=== PATIENT | female | born 1965 | race Two or more races ===

== ENCOUNTER 2016-08-06 10:18 | Day surgery (SDC) | payer OTHER ==
[2016-08-03 11:27] VITALS: BMI 25.6
[~2016-08-06 10:18] MED LIST: LEVOFLOXACIN 500 MG PREMIX BAG IVPB ONE
[2016-08-06] MEDS ORDERED: PROPOFOL 20 ML ONE (13:44)
[2016-08-06] MEDS ORDERED: MIDAZOLAM HCL 2 MG/2 ML SINGLE DOSE VIAL ONE ×2 (13:44→14:04)
[2016-08-06] MEDS ORDERED: LEVOFLOXACIN 500 MG PREMIX BAG IVPB ONE (13:49)
[2016-08-06] MEDS ORDERED: LEVOFLOXACIN 500 MG IVPB 100 ML IVPB ONE (13:50)
[2016-08-06] MEDS ORDERED: ONDANSETRON 4 MG/2 ML VIAL ONE (14:27)
[2016-08-06] MEDS ORDERED: ONDANSETRON 4 MG/2 ML VIAL IVPUSH PRN (15:23)
[2016-08-06] MEDS ORDERED: oxyCODONE HCL 5 MG TABLET PO PRN (15:23)
[2016-08-06] MEDS ORDERED: LACTATED RINGERS SOLUTION 1,000 ML IV SCH (15:30)
--- NOTE | 2016-08-06 16:09 | OP ---
Operative Note - Note: Operative Date: 08/06/16 Pre-Operative Diagnosis: right 4mm lower pole stone Operation: right eswl Post-Operative Diagnosis: Same as Pre-op Surgeon: Rich Isaac Anesthesia: General Operative Report Dictated: Yes
[2016-08-06 17:18] VITALS: BP 128/78; PULSE 58; TEMP 98
--- NOTE | 2016-08-07 13:53 | OP ---
DATE OF OPERATION: 08/06/2016 PREOPERATIVE DIAGNOSIS: Right renal stone. POSTOPERATIVE DIAGNOSIS: Right renal stone. PROCEDURE: Right extracorporeal shock wave lithotripsy. ATTENDING PHYSICIAN: Conrad Sánchez MD ANESTHESIA: General. DESCRIPTION OF PROCEDURE: The operation went as follows: The patient was brought in the operating room, placed in supine position on the operating room table. Fluoroscopy and ultrasonography were performed. A 4-mm right mid-pole stone was identified. General anesthesia and preoperative antibiotics consisting of Levaquin were administered. The patient then had lithotripsy performed; 2500 impulses at 18 joules of power were administered to the stone with excellent fragmentation on real-time ultrasonography and fluoroscopy. No complications were noted. The patient tolerated the procedure very well. CONRAD SÁNCHEZ M.D. /[id number]
== END 2016-08-06 17:18 | disposition home or self-care (01) ==
LOC: JASU-SURG 10:18
PROVIDERS: ATTEND Urology
PROC: 0TF3XZZ Fragmentation in Right Kidney Pelvis, External Approach (ICD-10-PCS; principal; 2016-08-06 11:45)
DX: N20.0 Calculus of kidney (principal)
CPT/HCPCS: 84703; 94760

== ENCOUNTER → 2016-09-27 | Day surgery (SDC) | payer OTHER ==
--- NOTE | 2016-09-28 15:54 | PATH ---
Cytology Non-Gynecological Report Patient Name: ADELIA SHELTON [facility]. Rec. #: [id number] /Age/Gender: 1965 (Age: 51) / F Account: [id number] Location: RADIOLOGY Taken: 09/27/2016 Received: 09/27/2016 Reported: 09/28/2016 Physicians: Urbano Corral M.D. Specimen(s) Received LEFT THYROID FNA Clinical History Left thyroid lobe nodule, 3.92 x 3.19 x 3.42 cm Final Diagnosis THYROID GLAND, LEFT LOBE, US GUIDED FINE NEEDLE ASPIRATION BIOPSY: NO FOLLICULAR EPITHELIAL CELLS PRESENT. CYST CONTENTS WITH DEGENERATED MACROPHAGES AND SCANT COLLOID (SEE COMMENT). Comment: The smears and the cell block show cyst contents with degenerated macrophages and scant colloid. No follicular epithelial cells are present. These findings are considered non-diagnostic (Cove Category I) according to the Cove guidelines. Imaging correlations and followup are suggested. Electronically Signed Familia Torres M.D. Gross Description Received are four air dried smears, four smears in 95% alcohol, and 20 cc of bloody fluid in formalin. Four diff-quik stained slides, four Pap stained slides and one cell block are made.
== END | disposition home or self-care (01) ==
LOC: JRADIR 08:24
PROVIDERS: ATTEND Internal Medicine Endocrinology, Diabetes & Metabolism
PROC: 0G9G3ZX Drainage of Left Thyroid Gland Lobe, Percutaneous Approach, Diagnostic (ICD-10-PCS; principal; 2016-09-27)
PROC: BG44ZZZ Ultrasonography of Thyroid Gland (ICD-10-PCS; 2016-09-27)
DX: E04.1 Nontoxic single thyroid nodule (principal)
CPT/HCPCS: 76942

== ENCOUNTER 2016-11-23 04:58 | Day surgery (SDC) | payer OTHER ==
[2016-11-19 10:40] VITALS: BMI 25.6
[2016-11-23] MEDS ORDERED: LIDOCAINE 1%/EPI 1:100000 (50 ML MULTI DOSE VIAL) ONE (10:22)
[2016-11-23] MEDS ORDERED: MICROFIBRILLAR COLLAGEN 1 GM EACH ONE (10:22)
[2016-11-23] MEDS ORDERED: DESFLURANE GAS 240 ML BOTTLE IH ONE (10:22)
[2016-11-23] MEDS ORDERED: PROPOFOL 20 ML ONE (10:35)
[2016-11-23] MEDS ORDERED: MIDAZOLAM HCL 2 MG/2 ML SINGLE DOSE VIAL ONE (10:35)
[2016-11-23] MEDS ORDERED: ceFAZolin SODIUM 1 GM VIAL ONE (11:07)
[2016-11-23] MEDS ORDERED: ceFAZolin SODIUM 1 GM VIAL IVPB ONE (11:07)
[2016-11-23] MEDS ORDERED: LIDOCAINE 1%/EPI 1:100000 (20 ML MULTI DOSE VIAL) IJ ONE (11:19)
[2016-11-23] MEDS ORDERED: LIDOCAINE HCL/PF 2% SDV 5ML VIAL ONE (11:25)
[2016-11-23] MEDS ORDERED: MICROFIBRILLAR COLLAGEN 1 GM EACH TP ONE (11:32)
[2016-11-23] MEDS ORDERED: ACETAMINOPHEN 500 MG TABLET (FP) PO PRN (11:45)
[2016-11-23] MEDS ORDERED: ONDANSETRON 4 MG/2 ML VIAL IVPUSH PRN (11:45)
[2016-11-23] MEDS ORDERED: IBUPROFEN 800 MG/8 ML IJ IVPB PRN (11:45)
[2016-11-23] MEDS ORDERED: oxyCODONE HCL 5 MG TABLET PO PRN (11:45)
[2016-11-23] MEDS ORDERED: LACTATED RINGERS SOLUTION 1,000 ML IV SCH ×2 (11:45→12:15)
--- NOTE | 2016-11-23 12:57 | OP ---
DATE OF OPERATION: 11/23/2016 SURGICAL ATTENDING: Rosemary Zarco MD [employer] DEVELOPER: Julian. PREOPERATIVE DIAGNOSIS: Left thyroid mass. POSTOPERATIVE DIAGNOSIS: Left thyroid mass. ANESTHESIA: General endotracheal. PROCEDURE: 1. Left hemithyroidectomy. 2. Neck ultrasound. DESCRIPTION OF PROCEDURE: The patient was taken into the operating room, placed in a supine position, endotracheally intubated. Neck ultrasound was performed showing a left cystic mass of the thyroid gland. No other thyroid or neck masses were seen. The patient was then prepped and draped in the usual sterile fashion. Local anesthesia was administered, and a 4.5-cm incision was made in a left upper-neck skin crease and carried down through subcutaneous tissues and platysma. Subplatysmal flaps were raised superiorly and inferiorly, and flap hooks were placed for exposure. The left-sided strap muscles were elevated. However, the left sternothyroid muscle appears somewhat adherent to the cyst, and therefore was left attached to the cyst with its upper and lower attachments transected. The sternohyoid muscle was retracted laterally. The recurrent laryngeal nerve was identified, dissected, and preserved. Every attempt was made to preserve parathyroid tissue, as well. The superior pole was transected with care taken to preserve the superior laryngeal nerve. The posterior and inferior attachments were transected, and the isthmus was transected, and in this way, the left thyroid lobe was removed with the cyst intact. The specimen was then inspected for parathyroid tissue, and none were found. It was then passed off the field for evaluation by Pathology. Hemostasis was achieved with electrocautery, Avitene, and sutures. The wound was then closed in three layers. Sterile dressings were placed. The patient was then awakened, extubated, and taken to recovery in stable condition. Dr. Zarco, the attending surgeon, was present throughout the entire procedure. ROSEMARY ZARCO M.D. [id number]
[2016-11-23] MEDS ORDERED: ONDANSETRON 4 MG/2 ML VIAL IVPUSH ONE ×2 (14:10→17:39)
[2016-11-23] MEDS ORDERED: ONDANSETRON 4 MG/2 ML VIAL ONE ×2 (14:12→17:39)
--- NOTE | 2016-11-23 17:30 | SURG ---
Surgery Glass Breaker Note Glass Breaker: Julian Maldonado PA-C Date of Service: 11/23/16 Diagnosis: Left thryoid mass Procedure: Lemi hemithyroidectomy I was present for the entirety of the operative procedure. For further detail, please refer to operative report. Visit type - Case Type Case Type: Scheduled Admission - New patient This patient is new to me today: Yes Date on this admission: 11/23/16
[2016-11-23] MEDS ORDERED: PROMETHAZINE HCL 25 MG/1 ML VIAL IVPUSH PRN (17:39)
[2016-11-23 18:29] VITALS: TEMP 97.8
[2016-11-23 20:53] VITALS: BP 113/72; PULSE 70
--- NOTE | 2016-11-26 14:16 | PATH ---
Surgical Pathology Report Patient Name: ADELIA SHELTON [facility]. Rec. #: [id number] /Age/Gender: 1965 (Age: 51) / F Account: [id number] Location: [facility] SURGICAL Taken: 11/23/2016 Received: 11/23/2016 Reported: 11/26/2016 Physicians: Can Mclaughlin M.D. Specimen(s) Received LEFT THYROID LOBE Clinical History Left thyroid mass Final Diagnosis THYROID, LEFT LOBE, HEMITHYROIDECTOMY: BENIGN THYROID WITH CYSTIC NODULE CONSISTENT WITH BENIGN ADENOMATOUS NODULE (GOITER) WITH CYSTIC DEGENERATIVE CHANGES. REMAINING THYROID TISSUE WITH FOCAL NODULARITY SUGGESTIVE OF EVOLVING MULTINODULAR GOITER. NO CARCINOMA IDENTIFIED. Comment: See also prior cytology case [id number]. Electronically Signed Donaldo Bush M.D. Gross Description Received in formalin labeled "left thyroid lobe," is a 25 g, 4.7 x 3.8 x 2.8 cm unoriented thyroid lobe. The outer capsule is marroquin-pink with fibrous adhesions. Sectioning reveals a 3.5 cm in greatest dimension cyst containing marroquin serous fluid. The minimal remaining thyroid parenchyma is red-brown and beefy. Biomedical Manager sections are submitted in 7 cassettes. DL/11/23/2016 saudi/11/23/2016
== END 2016-11-23 20:15 | disposition home or self-care (01) ==
LOC: JASU-SURG 04:58
PROVIDERS: ATTEND Surgery
PROC: 0GTK0ZZ Resection of Thyroid Gland, Open Approach (ICD-10-PCS; principal; 2016-11-23 10:15)
DX: E04.1 Nontoxic single thyroid nodule (principal)
CPT/HCPCS: 84703; 88307-TC; 94760

== ENCOUNTER 2016-11-25 16:00 | Observation (INO) | payer OTHER ==
--- NOTE | 2016-11-25 16:17 | PDOC ---
History of Present Illness - General Chief Complaint: Syncope/Near Syncope Stated Complaint: LOW BP/SYNCOPE Time Seen by Provider: 11/25/16 16:17 - History of Present Illness Initial Comments: 51 year old female with PMH of vertigo and frequent UTIs 2 days post of from parathyroidectomy (for dermal cyst) presenting after a syncopal episode. Patient had a post op recovery period significant for heavy vomiting, bilateral rib pain, and decreased appetite. One hour before presentation to the ED she was urinating and began to feel light headed. She stood up from the toilet and the sensation worsened. She Made it to her bedroom at which point she doesn't recall anything until she was being helped up by her sister. She states the sensation was unlike her vertigo. Her sister who helped her off of the floor states that she was covered in sweat but there was no witnessed seizure activity , no bowel/bladder incontinence, and no open wounds or obvious bony deformity. Her bilateral lower rib pain is worse with movement but has no relation to deep breathing. The patient denies recent fevers, chills, diarrhea, chest pain, palpitations, or cough. 11/25/16 16:42 Past History - Past Medical History Allergies/Adverse Reactions: Allergies Allergy/AdvReac Type Severity Reaction Status Date / Time No Known Allergies Allergy Verified 11/25/16 16:06 Home Medications: Ambulatory Orders Meclizine HCl 25 mg PO PRN PRN 08/03/16 Omeprazole 40 mg PO PRN PRN 08/06/16 Cyanocobalamin [Vitamin B12 -] 1,000 mcg PO DAILY 11/23/16 Anemia: No Asthma: No Cancer: No Cardiac Disorders: No CVA: No COPD: No CHF: No Dementia: No Diabetes: No GI Disorders: No Disorders: No HTN: No Hypercholesterolemia: No Liver Disease: No Seizures: No Thyroid Disease: Yes Other medical history: thyroid sx 2017 - Suicide/Smoking/Psychosocial Hx Smoking History: Never smoked Hx Alcohol Use: No Drug/Substance Use Hx: No Substance Use Type: None Review of Systems - Review of Systems Constitutional: Yes: Diaphoresis. No: Chills, Fever HEENTM: No: Blurred Vision, Recent change in vision Respiratory: No: Shortness of Breath, SOB with Exertion, Wheezing, Productive cough Cardiac (ROS): Yes: Lightheadedness, Syncope. No: Chest Pain, Irregular Heart Rate, Palpitations, Chest Tightness ABD/GI: Yes: Poor Appetite, Vomiting. No: Diarrhea, Nausea : No: Dysuria, Discharge, Frequency, Flank Pain Integumentary: No: Bruising, Lesions Neurological: Yes: Weakness. No: Headache, Numbness, Seizure, Tingling Psychiatric: No: Anxiety *Physical Exam - Vital Signs Last Vital Signs Temp Pulse Resp BP Pulse Ox 98.2 F 83 18 121/77 98 11/25/16 16:04 11/25/16 16:04 11/25/16 16:04 11/25/16 16:04 11/25/16 16:04 - Physical Exam General Appearance: Yes: Nourished, Appropriately Dressed. No: Apparent Distress HEENT: positive: EOMI, JEN, Normal ENT Inspection (Scar across neck logan, dry, and intact. No obvious sign of erythema, fluctuance, or drainage.), Normal Voice Neck: positive: Tender, Trachea midline, Supple. negative: Normal Thyroid, Rigid Respiratory/Chest: positive: Normal Breath Sounds. negative: Chest Tender, Lungs Clear, Respiratory Distress Cardiovascular: positive: Regular Rhythm, Regular Rate Gastrointestinal/Abdominal: positive: Normal Bowel Sounds, Flat, Soft. negative : Tender Musculoskeletal: positive: Normal Inspection. negative: CVA Tenderness Integumentary: positive: Normal Color, Dry, Warm Neurologic: positive: can crimper II-XII NML intact, Fully Oriented, Alert, Normal Mood/ Affect, Normal Response, Motor Strength 5/5 ED Treatment Course - LABORATORY CBC & Chemistry Diagram: 11/25/16 16:45 11/25/16 16:45 Medical Decision Making - Medical Decision Making 51 year old female 2 days post op presenting after brief syncopal episode. This is most concerning for orthostatic hypotentision/ vasovagal syncope in the setting of decreased volume status. However, more serious pathologies such as acute cardiac event, serious electrolyte derangement, and underlying infection should be ruled out. Will get CBC, CMP, cxr, UA/UC, and will hold off on troponins or d-dimer unless abnormality in EKG or patient exhibiting concerning vitals unexplainable by other identifiable causes. 11/25/16 17:28 Labs patel-normal with the exception of a slightly elevated ckmb and cpk and some Ketones in her urine all pointing to some level of dehydration. She feels slightly better after 1 L of NS and 800 ibuprofen. She still feels weak. Discussed the case with Dr. Perales and she agrees that a tele-obs could be beneficial however she would like the hospitalist team to take this admission. Discussed the case with the hospitalist team and they agree to a tele obs. 11/25/16 21:51 11/25/16 22:[address] Perales, she would like to see the patient after she is discharged. 11/25/16 22:01 *DC/Admit/Observation/Transfer Diagnosis at time of Disposition: Syncope - Discharge Dispostion Condition at time of disposition: Stable Admit: Yes - Referrals Referrals: Scarlet Perales MD [Primary Care Provider] -
--- NOTE | 2016-11-25 16:39 | PDOC ---
Attending Attestation - Resident Resident Name: Theresa Ward - ED Attending Attestation I have performed the following: I have examined & evaluated the patient, The case was reviewed & discussed with the resident, I agree w/resident's findings & plan, Exceptions are as noted - HPI HPI: 11/25/16 16:37 SYncope earlier today - Physicial Exam PE: 11/25/16 16:38 VSS/Awake/Alert/Aware - Medical Decision Making 11/25/16 16:[address] Theresa Ward's assessment and plan
[2016-11-25] MEDS ORDERED: SODIUM CHLORIDE 0.9% 1000 ML INFUS.BAG IV ONE (16:46)
[2016-11-25 16:52] LABS: BASOPHIL 0.6 % (0-2.0); EOSINOPHIL 0.8 % (0-4.5); MCH 29.5 pg (25.7-33.7); MCHC 33.1 g/dl (32.0-36.0); MEAN CELL VOLUME 89.1 fl (80-96); MEAN PLT VOLUME 7.8 fl (7.5-11.1); NEUTROPHILS 79.1 % (42.8-82.8); PLATELET COUNT 281 K/MM3 (134-434); RDW 14.2 % (11.6-15.6); WHITE BLOOD COUNT 8.5 K/mm3 (4.0-10.0)
[2016-11-25 17:03] LABS: URINE APPEARANCE SLCLOUDY; URINE BILIRUBIN NEGATIVE (NEGATIVE); URINE BLOOD NEGATIVE (NEGATIVE); URINE COLOR DKYELLOW; URINE GLUCOSE (UA) NEGATIVE (NEGATIVE); URINE KETONE TRACE (NEGATIVE); URINE LEUK ESTERASE NEGATIVE (NEGATIVE); URINE NITRITE NEGATIVE (NEGATIVE); URINE UROBILINOGEN NEGATIVE mg/dL (0.2-1.0)
[2016-11-25 17:15] LABS: URINE PROTEIN 2+ (NEGATIVE)
[2016-11-25 17:17] LABS: URINE BACTERIA RARE /hpf (NONE SEEN); URINE MUCUS FEW; URINE RBC 18 /hpf (0-3); URINE WBC 6 /hpf (3-5)
[2016-11-25 17:28] LABS: ALBUMIN 3.9 g/dl (3.4-5.0); ANION GAP 10 (8-16); BILIRUBIN,TOTAL 0.2 mg/dL (0.2-1.0); CALCIUM 8.7 mg/dL (8.5-10.1); CO2 30 mmol/L (21-32); CREATININE 0.9 mg/dL (0.55-1.02); GLUCOSE,RANDOM 102 mg/dL (74-106); MAGNESIUM 2.2 mg/dL (1.8-2.4); SGOT/AST 24 U/L (15-37); SGPT/ALT 32 U/L (12-78); TOT PROT 7.1 g/dl (6.4-8.2)
[2016-11-25 17:29] LABS: ALK PHOS 90 U/L (45-117)
[2016-11-25] MEDS ORDERED: IBUPROFEN 400 MG TABLET (FP) PO ONE ×2 (17:54→17:58)
[2016-11-25 20:20] LABS: CPK 314 IU/L (26-192); TROPONIN I < 0.02 ng/ml (0.00-0.05)
[2016-11-25] MEDS ORDERED: SODIUM CHLORIDE 0.9% 500 ML INFUS.BAG IV ONE (20:55)
--- NOTE | 2016-11-25 22:08 | HP ---
CHIEF COMPLAINT: Syncope PCP: Dr. Perales HISTORY OF PRESENT ILLNESS: 51 y.o. F with pmh of vertigo, frequent UTI's, nephrolithiasis, and parathyroidectomy pod#2 presenting after a syncopal episode. Patient states she was urinating today and felt light headed. She made it to her room before passing out. Her fall was unwitnessed. She was found by her sister who states she was diaphoretic upon awakening. Patient notes she has had significant vomiting, bilateral rip pain, and decreased appetite after her surgery. Patient denies fever, chills, diarrhea, chest pain, sob, cough, abd pain. Patient had a similar episode earlier in the day but did not lose consciousness. ER course was notable for: (1) cbc, bmp- wnl (2) UA- 2+ protein, trace ketone, creatine kinase-314, trop negative (3) EKG- NSR, LAD, QTC-449 Recent Travel: denies PAST MEDICAL HISTORY: as per hpi PAST SURGICAL HISTORY: parathyroidectomy Social History: Smoking: denies Alcohol: denies Drugs: denies Family History: unknown Allergies No Known Allergies Allergy (Verified 11/25/16 16:06) HOME MEDICATIONS: Home Medications Medication Instructions Recorded Meclizine HCl 25 mg PO PRN PRN 08/03/16 Omeprazole 40 mg PO PRN PRN 08/06/16 Cyanocobalamin [Vitamin B12 -] 1,000 mcg PO DAILY 11/23/16 REVIEW OF SYSTEMS CONSTITUTIONAL: Absent: fever, chills, diaphoresis, generalized weakness, malaise, loss of appetite, weight change HEENT: Absent: rhinorrhea, nasal congestion, throat pain, throat swelling, difficulty swallowing, mouth swelling, ear pain, eye pain, visual changes CARDIOVASCULAR: Absent: chest pain, syncope, palpitations, irregular heart rate, lightheadedness , peripheral edema RESPIRATORY: Absent: cough, shortness of breath, dyspnea with exertion, orthopnea, wheezing, stridor, hemoptysis GASTROINTESTINAL: Absent: abdominal pain, abdominal distension, nausea, vomiting, diarrhea, constipation, melena, hematochezia GENITOURINARY: Absent: dysuria, frequency, urgency, hesitancy, hematuria, flank pain, genital pain MUSCULOSKELETAL: Absent: myalgia, arthralgia, joint swelling, back pain, neck pain SKIN: Absent: rash, itching, pallor HEMATOLOGIC/IMMUNOLOGIC: Absent: easy bleeding, easy bruising, lymphadenopathy, frequent infections ENDOCRINE: Absent: unexplained weight gain, unexplained weight loss, heat intolerance, cold intolerance NEUROLOGIC: Absent: headache, focal weakness or paresthesias, dizziness, unsteady gait, seizure, mental status changes, bladder or bowel incontinence PSYCHIATRIC: Absent: anxiety, depression, suicidal or homicidal ideation, hallucinations. PHYSICAL EXAMINATION Vital Signs - 24 hr 11/25/16 11/25/16 16:04 17:24 Temperature 98.2 F Pulse Rate 83 Pulse Rate [ 83 Left side Sitting] Pulse Rate [ 87 Left side Standing] Pulse Rate [ 97 H Left side Supine] Respiratory 18 Rate Blood Pressure 121/77 Blood Pressure 113/85 [Left side Sitting] Blood Pressure 106/82 [Left side Standing] Blood Pressure 108/83 [Left side Supine] O2 Sat by Pulse 98 Oximetry (%) GENERAL: Awake, alert, and fully oriented, in no acute distress. HEAD: Normal with no signs of trauma. EYES: Pupils equal, round and reactive to light, extraocular movements intact, sclera anicteric, conjunctiva clear. No lid lag. EARS, NOSE, THROAT: Ears normal, nares patent, oropharynx clear without exudates. Dry mucous membranes. NECK: Normal range of motion, supple without lymphadenopathy, JVD, or masses. Midline scar, well healing, clean dry intact LUNGS: Breath sounds equal, clear to auscultation bilaterally. No wheezes, and no crackles. No accessory muscle use. HEART: Regular rate and rhythm, normal S1 and S2 without murmur, rub or gallop. ABDOMEN: Soft, nontender, not distended, normoactive bowel sounds, no guarding, no rebound, no masses. No hepatomegaly or splenomegaly. +Bilateral rib pain tenderness to palpation MUSCULOSKELETAL: Normal range of motion at all joints. No bony deformities or tenderness. No CVA tenderness. UPPER EXTREMITIES: 2+ pulses, warm, well-perfused. No cyanosis. No clubbing. No peripheral edema. LOWER EXTREMITIES: 2+ pulses, warm, well-perfused. No calf tenderness. No peripheral edema. NEUROLOGICAL: Cranial nerves II-XII intact. Normal speech. Normal gait. PSYCHIATRIC: Cooperative. Good eye contact. Appropriate mood and affect. SKIN: Warm, dry, normal turgor, no rashes or lesions noted, normal capillary refill. Laboratory Results - last 24 hr 11/25/16 11/25/16 11/25/16 16:44 16:45 16:45 WBC 8.5 D RBC 4.83 Hgb 14.2 Hct 43.0 MCV 89.1 MCH 29.5 MCHC 33.1 RDW 14.2 Plt Count 281 MPV 7.8 Neutrophils % 79.1 D Lymphocytes % 12.3 D Monocytes % 7.2 Eosinophils % 0.8 Basophils % 0.6 Sodium 141 Potassium 3.9 Chloride 101 Carbon Dioxide 30 Anion Gap 10 BUN 12 Creatinine 0.9 D Creat Clearance w eGFR > 60 Random Glucose 102 Calcium 8.7 Magnesium 2.2 Total Bilirubin 0.2 D AST 24 D ALT 32 Alkaline Phosphatase 90 Creatine Kinase Creatine Kinase Index CK-MB (CK-2) Troponin I Total Protein 7.1 Albumin 3.9 Urine Color Urine Appearance Urine pH Urine Protein Urine Glucose (UA) Urine Ketones Urine Blood Urine Nitrite Urine Bilirubin Urine Urobilinogen Urine RBC Urine WBC Ur Epithelial Cells Urine Bacteria Urine Mucus Urine HCG, Qual Negative 11/25/16 11/25/16 16:51 20:00 WBC RBC Hgb Hct MCV MCH MCHC RDW Plt Count MPV Neutrophils % Lymphocytes % Monocytes % Eosinophils % Basophils % Sodium Potassium Chloride Carbon Dioxide Anion Gap BUN Creatinine Creat Clearance w eGFR Random Glucose Calcium Magnesium Total Bilirubin AST ALT Alkaline Phosphatase Creatine Kinase 314 H Creatine Kinase Index 0.4 CK-MB (CK-2) 1.444 Troponin I < 0.02 Total Protein Albumin Urine Color Dkyellow Urine Appearance Slcloudy Urine pH 7.0 D Urine Protein 2+ H Urine Glucose (UA) Negative Urine Ketones Trace H Urine Blood Negative Urine Nitrite Negative Urine Bilirubin Negative Urine Urobilinogen Negative Urine RBC 18 Urine WBC 6 Ur Epithelial Cells Rare Urine Bacteria Rare Urine Mucus Few Urine HCG, Qual ASSESSMENT/PLAN: 51 y.o. F with pmh of GERD, vertigo, frequent uti's, nephrolithiasis presents after an unwitnessed fall admitted to tele-obs for syncope #Syncope, vasovagal vs cardiogenic -Orthostatic vs done -IVF NS @ 100 cc/hr -Echocardiogram pending -Carotid U/s -CT head -Trend trops/EKG #Vertigo -Meclizine 25 mg po daily prn #GERD -Protonix 40 mg po daily prn #Rib pain, b/l -Rib series bilaterally #Parathyroidectomy, POD#2 -Monitor pain -Patient scheduled for f/u visit next week #FEN/GI -IVF NS @ 100cc/hr -wnl -Regular Diet #PPx -DVT- scd's -GI- protonix 40 mg po daily prn #Dispo -Tele-obs -D/c pending echo and carotid u/s Visit type - Emergency Visit Emergency Visit: Yes Care time: The patient presented to the Emergency Department on the above date and was hospitalized for further evaluation of their emergent condition. - New Patient This patient is new to me today: Yes Date on this admission: 11/25/16 - Critical Care Critical Care patient: No
--- NOTE | 2016-11-25 22:15 | PN ---
Teaching Attending Note Name of Resident: Carlos Garcia ATTENDING PHYSICIAN STATEMENT I saw and evaluated the patient. I reviewed the resident's note and discussed the case with the resident. I agree with the resident's findings and plan as documented. SUBJECTIVE: 51 F with Pmhx of Vertigo and frequent UTIs. She is S/p Parathyriodectomy for a dermal cyst. She presents after loss of consciousness at home. Stats her recovery was complicated by vomiting, and decreased appeitite. States that she was at home and stood up from the toilet and then being helped by her sister. States she DID NOT hit her head, but fall was UNWITNESSED. Also, notes rib pain. OBJECTIVE: Physical: VS: Vital Signs Period Temp Pulse Resp BP Sys/Judd Pulse Ox Last 24 Hr 98.2 F-98.7 F 67-97 16-18 106-123/76-85 96-98 GEN: NAd, resting in bed HEENT: NCAT, PERRL, Midline neck scar, without exudates or significant erythema CARD: RRR S1, S2 RESP: CTAB ABD: BSx4, NTD to palpation EXT: - C/C/E CBCD WBC 8.5 K/mm3 (4.0-10.0) D 11/25/16 16:45 RBC 4.83 M/mm3 (3.60-5.2) 11/25/16 16:45 Hgb 14.2 GM/dL (10.7-15.3) 11/25/16 16:45 Hct 43.0 % (32.4-45.2) 11/25/16 16:45 MCV 89.1 fl (80-96) 11/25/16 16:45 MCHC 33.1 g/dl (32.0-36.0) 11/25/16 16:45 RDW 14.2 % (11.6-15.6) 11/25/16 16:45 Plt Count 281 K/MM3 (134-434) 11/25/16 16:45 MPV 7.8 fl (7.5-11.1) 11/25/16 16:45 CMP Sodium 141 mmol/L (136-145) 11/25/16 16:45 Potassium 3.9 mmol/L (3.5-5.1) 11/25/16 16:45 Chloride 101 mmol/L (98-107) 11/25/16 16:45 Carbon Dioxide 30 mmol/L (21-32) 11/25/16 16:45 Anion Gap 10 (8-16) 11/25/16 16:45 BUN 12 mg/dL (7-18) 11/25/16 16:45 Creatinine 0.9 mg/dL (0.55-1.02) D 11/25/16 16:45 Creat Clearance w eGFR > 60 (>60) 11/25/16 16:45 Calcium 8.7 mg/dL (8.5-10.1) 11/25/16 16:45 Total Bilirubin 0.2 mg/dL (0.2-1.0) D 11/25/16 16:45 AST 24 U/L (15-37) D 11/25/16 16:45 ALT 32 U/L (12-78) 11/25/16 16:45 Alkaline Phosphatase 90 U/L (45-117) 11/25/16 16:45 Total Protein 7.1 g/dl (6.4-8.2) 11/25/16 16:45 Albumin 3.9 g/dl (3.4-5.0) 11/25/16 16:45 EKG: NSR, LAD, QTc 449 ASSESSMENT AND PLAN: 51 F with pmhx. of vertigo, utis, 2 days post op from parathyriodectomy who presents with loss of concioussness with unwitnessed fall. 1.) Loss of Conciousness - DDX: Vasovagal syncope/Cardiogenic - Orthostatic VS - IVF - Echo/Carotid us - CT HEAD- unwitnessed fall - Trend Trop/Ekg - Tele 2.) Vertigo - C/W Meclizine 3.) Parathyriodectomy POD 2 - Monitor 4.) Rib Pain - Rib Series 5.) Dvt Ppx - Low Risk - SCD Place in Obs- Tele
[2016-11-25] MEDS ORDERED: SODIUM CHLORIDE 1,000 ML IV SCH (23:00)
[2016-11-25] MEDS ORDERED: PATIENT'S OWN MEDICATION (NON-FORMULARY) (Omeprazole 40 MG) PO PRN (23:10)
[2016-11-25] MEDS ORDERED: MECLIZINE HCL 12.5 MG TABLET PO PRN ×2 (23:10→23:15)
[2016-11-25] MEDS ORDERED: MECLIZINE HCL 25 MG TABLET (FP) PO PRN (23:20)
[2016-11-25] MEDS ORDERED: PANTOPRAZOLE 40 MG TABLET (FP) ONE (23:53)
[2016-11-26] MEDS: PANTOPRAZOLE 40 MG TABLET (FP) PO SCH ×2 (00:14→10:57)
[2016-11-26 02:51] VITALS: BMI 25.7
[2016-11-26 07:09] LABS: BASOPHIL 0.9 % (0-2.0); EOSINOPHIL 2.8 % (0-4.5); MCH 29.1 pg (25.7-33.7); MCHC 32.5 g/dl (32.0-36.0); MEAN CELL VOLUME 89.4 fl (80-96); NEUTROPHILS 56.8 % (42.8-82.8); PLATELET COUNT 234 K/MM3 (134-434); RDW 14.3 % (11.6-15.6); WHITE BLOOD COUNT 6.5 K/mm3 (4.0-10.0)
[2016-11-26 08:07] LABS: ALBUMIN 3.3 g/dl (3.4-5.0); ALK PHOS 72 U/L (45-117); ANION GAP 10 (8-16); BILIRUBIN,TOTAL 0.3 mg/dL (0.2-1.0); CO2 25 mmol/L (21-32); CREATININE 0.6 mg/dL (0.55-1.02); GLUCOSE,RANDOM 90 mg/dL (74-106); SGOT/AST 20 U/L (15-37); SGPT/ALT 27 U/L (12-78); TOT PROT 6.2 g/dl (6.4-8.2)
--- NOTE | 2016-11-26 09:56 | CON.NEURO ---
Consult - History of Present Illness History of Present Illness: 51 y.o. F with pmh of vertigo, frequent UTI's, nephrolithiasis, and parathyroidectomy pod#2 presenting after a syncopal episode. Patient states she was urinating today and felt light headed. She made it to her room before passing out. Her fall was unwitnessed. She was found by her sister who states she was diaphoretic upon awakening. Patient notes she has had significant vomiting, bilateral rip pain, and decreased appetite after her surgery. Patient denies fever, chills, diarrhea, chest pain, sob, cough, abd pain. no hx of seizures. reports pain in the lower chest /abdomen. orthostatics (-); CT HD (-) - History Source History Provided By: Patient Limitations to Obtaining History: No Limitations - Past Medical History ...LMP: 06/03/16 - Alcohol/Substance Use Hx Alcohol Use: No - Smoking History Smoking history: Never smoked Have you smoked in the past 12 months: No Home Medications - Allergies Allergies/Adverse Reactions: Allergies Allergy/AdvReac Type Severity Reaction Status Date / Time No Known Allergies Allergy Verified 11/25/16 16:06 - Home Medications Home Medications: Ambulatory Orders Meclizine HCl 25 mg PO PRN PRN 08/03/16 Omeprazole 40 mg PO PRN PRN 08/06/16 Cyanocobalamin [Vitamin B12 -] 1,000 mcg PO DAILY 11/23/16 Acetaminophen [Tylenol] 325 mg PO PRN PRN 11/26/16 Tylenol # 3 - 30 mg PO PRN PRN 11/26/16 Physical Exam-Neuro Vital Signs: Vital Signs Temperature 98.0 F 11/26/16 06:01 Pulse Rate 72 11/26/16 06:01 Respiratory Rate 16 11/26/16 07:09 Blood Pressure 101/74 11/26/16 06:01 O2 Sat by Pulse Oximetry (%) 97 11/26/16 07:09 Constitutional: Yes: Well Nourished Neck: Yes: WNL Cardiovascular: Yes: Regular Rate and Rhythm Respiratory: Yes: CTA Bilaterally Labs: CBC, BMP 11/26/16 06:30 11/26/16 06:30 - Neuro Exam Level Of Consciousness: Yes: Alert, Oriented to Person (EOMI, no facial, motor 5 /5, reflexes symmetric, no ataxia, gait not tested ) Imaging - Results Cat Scan: Report Reviewed, Image Reviewed Problem List - Problems (1) Syncope Code(s): R55 - SYNCOPE AND COLLAPSE Assessment/Plan s/p parathyroid surgery with syncopal event, no stigmata for seizure or stroke; nonfocal exam, HD Ct (-) ORThostatic (-), given associated diaphoresis, likely cardiac/orthostatic mediated, s/p surgery FU thyroid status and card input and agree with ECHO, Dopplers thanks for including me in her care, Dr Finnegan [phone]
[2016-11-26] MEDS ORDERED: diazePAM 2 MG TABLET PO ONE (10:34)
[2016-11-26] MEDS ORDERED: NAPROXEN 250 MG TABLET (FP) PO ONE (10:34)
--- NOTE | 2016-11-26 11:01 | EKG ---
Test Reason : Blood Pressure : / mmHG Vent. Rate : 064 BPM Atrial Rate : 064 BPM P-R Int : 152 ms QRS Dur : 078 ms QT Int : 418 ms P-R-T Axes : 024 -24 -07 degrees QTc Int : 431 ms NORMAL SINUS RHYTHM NORMAL ECG WHEN COMPARED WITH ECG OF 26-NOV-2016 04:15, NO SIGNIFICANT CHANGE WAS FOUND Confirmed by BEVERLEY HIGHTOWER MD ([id number]) on 11/26/2016 11:00:31 AM Referred By: ISAAC MCKENNA DRNVGilberto Confirmed By:BEVERLEY HIGHTOWER MD
--- NOTE | 2016-11-26 11:05 | EKG ---
Test Reason : Blood Pressure : / mmHG Vent. Rate : 073 BPM Atrial Rate : 073 BPM P-R Int : 142 ms QRS Dur : 074 ms QT Int : 432 ms P-R-T Axes : 016 -27 007 degrees QTc Int : 475 ms NORMAL SINUS RHYTHM NORMAL ECG WHEN COMPARED WITH ECG OF 25-NOV-2016 17:10, NO SIGNIFICANT CHANGE WAS FOUND Confirmed by BEVERLEY HIGHTOWER MD ([id number]) on 11/26/2016 11:05:10 AM Referred By: Confirmed By:BEVERLEY HIGHTOWER MD
--- NOTE | 2016-11-26 11:09 | EKG ---
Test Reason : Blood Pressure : / mmHG Vent. Rate : 085 BPM Atrial Rate : 085 BPM P-R Int : 138 ms QRS Dur : 076 ms QT Int : 378 ms P-R-T Axes : 053 -39 046 degrees QTc Int : 449 ms NORMAL SINUS RHYTHM LEFT AXIS DEVIATION ABNORMAL ECG WHEN COMPARED WITH ECG OF 19-NOV-2016 11:13, NO SIGNIFICANT CHANGE WAS FOUND Confirmed by BEVERLEY HIGHTOWER MD ([id number]) on 11/26/2016 11:09:29 AM Referred By: Confirmed By:BEVERLEY HIGHTOWER MD
--- NOTE | 2016-11-26 11:17 | PN ---
Physical Exam: SUBJECTIVE: Patient seen and examined. Her main complaint is rib pain when she coughs or takes a deep breath. OBJECTIVE: Vital Signs Period Temp Pulse Resp BP Sys/Judd Pulse Ox Last 24 Hr 97.3 F-98.7 F 58-72 16-16 101-129/74-80 96-97 PE Neuro: alert, awake, cn 2-12intact HEENT: anterior neck incision CDI, mild swelling Pulm: CTAB CV: s1 s2 rrr no mrg, mild reproducible chest pain Abd: s nt nd +bs Ext: warm no le edema MSK: b/l rib tenderness Laboratory Results - last 24 hr 11/26/16 11/26/16 11/26/16 04:00 06:30 06:30 WBC 6.5 RBC 4.60 Hgb 13.4 Hct 41.1 MCV 89.4 MCH 29.1 MCHC 32.5 RDW 14.3 Plt Count 234 MPV 8.0 Neutrophils % 56.8 D Lymphocytes % 32.5 D Monocytes % 7.0 Eosinophils % 2.8 D Basophils % 0.9 Sodium 143 Potassium 4.1 Chloride 108 H Carbon Dioxide 25 Anion Gap 10 BUN 8 D Creatinine 0.6 D Creat Clearance w eGFR > 60 Random Glucose 90 Calcium 8.0 L Total Bilirubin 0.3 D AST 20 ALT 27 Alkaline Phosphatase 72 Troponin I < 0.02 Total Protein 6.2 L Albumin 3.3 L Active Medications Generic Name Dose Route Start Last Admin Trade Name Freq PRN Reason Stop Dose Admin Sodium Chloride 1,000 mls @ 100 mls/hr 11/25/16 23:00 11/26/16 00:13 Normal Saline - IV 100 mls/hr ASDIR ROMELIA Administration Meclizine HCl 25 mg 11/25/16 23:20 11/26/16 10:57 Antivert - PO 25 mg DAILY PRN Administration DIZZINESS Pantoprazole Sodium 40 mg 11/25/16 23:14 11/26/16 10:57 Protonix - PO 40 mg DAILY ROMELIA Administration Assessment: 51 year old female with pmh of GERD, vertigo, frequent uti's, nephrolithiasis presents after an unwitnessed fall admitted with syncope 1. Syncope - Likely vasovagal vs poor appetite/dehydration - Orthostatics negative - ECHO/ carotid dopplers pending 2. Vertigo -Meclizine 25 mg po daily prn 3. Rib tenderness - Possible costochondritis - Will trial x1 PO valium with naproxen - Monitor response - Rib xray negative 3. L mass removal on L thryoid 11/23 - Discussed case with SHAWNA Berger, parathyroid was untouched, mass was removed from left thyroid, case was clean - Follow up scheduled for next week, Dr. Can Miranda [phone] 4. GERD - Protonix daily Visit type - Emergency Visit Emergency Visit: Yes ED Registration Date: 11/25/16 Care time: The patient presented to the Emergency Department on the above date and was hospitalized for further evaluation of their emergent condition. - New Patient This patient is new to me today: Yes Date on this admission: 11/26/16 - Critical Care Critical Care patient: No
[2016-11-26 14:43] VITALS: BP 94/44; PULSE 75; TEMP 98.9
--- NOTE | 2016-11-26 15:46 | DS ---
Physical Exam: SUBJECTIVE: Patient seen and examined. See days progress note. OBJECTIVE: Vital Signs Period Temp Pulse Resp BP Sys/Judd Pulse Ox Last 24 Hr 97.3 F-98.9 F 58-88 16-18 94-129/44-84 96-97 PE Neuro: alert, awake, cn 2-12intact HEENT: anterior neck incision CDI, mild swelling Pulm: CTAB CV: s1 s2 rrr no mrg, mild reproducible chest pain Abd: s nt nd +bs Ext: warm no le edema MSK: b/l rib tenderness Laboratory Results - last 24 hr 11/26/16 11/26/16 11/26/16 04:00 06:30 06:30 WBC 6.5 RBC 4.60 Hgb 13.4 Hct 41.1 MCV 89.4 MCH 29.1 MCHC 32.5 RDW 14.3 Plt Count 234 MPV 8.0 Neutrophils % 56.8 D Lymphocytes % 32.5 D Monocytes % 7.0 Eosinophils % 2.8 D Basophils % 0.9 Sodium 143 Potassium 4.1 Chloride 108 H Carbon Dioxide 25 Anion Gap 10 BUN 8 D Creatinine 0.6 D Creat Clearance w eGFR > 60 Random Glucose 90 Calcium 8.0 L Total Bilirubin 0.3 D AST 20 ALT 27 Alkaline Phosphatase 72 Troponin I < 0.02 Total Protein 6.2 L Albumin 3.3 L HOSPITAL COURSE: Date of Admission:11/25/16 Date of Discharge: 11/26/16 Minutes to complete discharge: 36 Discharge Summary Reason For Visit: SYNCOPE Current Active Problems Syncope (Acute) Hospital Course: Initial Hospital Course: Briefly, this 51 year old female with pmh of vertigo, frequent UTI's, nephrolithiasis, and parathyroidectomy 11/23 presented after a syncopal episode. Patient swas urinating today and felt light headed. She made it to her room before passing out. Her fall was unwitnessed. She was found by her sister who states she was diaphoretic upon awakening. Patient notes she has had significant vomiting, bilateral rip pain, and decreased appetite after her surgery. Subsequent Hospital Course by plan: 1. Syncope - Likely vasovagal vs poor appetite/dehydration d/t Post op squeal - Orthostatics negative - Refused Carotid doppler - ECHO shows LV nml size, low normal fxn, RVSF nml size, mild mr, suggestive impaired LV relaxation - BP controlled while here 2. Vertigo -Meclizine 25 mg po daily prn 3. Rib tenderness - Possible costochondritis - Improve with x1 dose valium with naproxen - Rib xray negative 3. L mass removal on L thyroid 11/23 - Discussed case with Dr. Miranda, parathyroid was untouched, mass was removed from left thyroid, case was clean, min blood loss - Follow up scheduled for next week, Dr. Can Miranda [phone] 4. GERD - Protonix daily Dispo: - Home with pcp and ENT follow up Condition: Stable - Instructions Diet, Activity, Other Instructions: Please return to the ED for any new, persistent, or worsening systems. Follow up with you PCP in 1 week Stay well hydrated and increase food intake as you can Followup with Dr. Miranda next week Referrals: Scarlet Perales MD [Primary Care Provider] - Can Mclaughlin MD [Staff Physician] - Disposition: HOME - Home Medications Comprehensive Discharge Medication List: Ambulatory Orders Meclizine HCl 25 mg PO PRN PRN 08/03/16 Omeprazole 40 mg PO PRN PRN 08/06/16 Cyanocobalamin [Vitamin B12 -] 1,000 mcg PO DAILY 11/23/16 Acetaminophen [Tylenol] 325 mg PO PRN PRN 11/26/16 Tylenol # 3 - 30 mg PO PRN PRN 11/26/16 This patient is new to me today: Yes Date on this admission: 11/26/16 Emergency Visit: Yes ED Registration Date: 11/25/16 Care time: The patient presented to the Emergency Department on the above date and was hospitalized for further evaluation of their emergent condition. Critical Care patient: No - Discharge Referral Referred to [facility] No
--- NOTE | 2016-11-27 14:41 | EKG ---
Test Reason : Blood Pressure : / mmHG Vent. Rate : 060 BPM Atrial Rate : 060 BPM P-R Int : 160 ms QRS Dur : 082 ms QT Int : 462 ms P-R-T Axes : 018 -22 000 degrees QTc Int : 462 ms NORMAL SINUS RHYTHM RSR' IN V2 WHEN COMPARED WITH ECG OF 26-NOV-2016 00:08, NO SIGNIFICANT CHANGE WAS FOUND Confirmed by MARYAM DAVENPORT MD ([id number]) on 11/27/2016 2:40:51 PM Referred By: Confirmed By:MARYAM DAVENPORT MD
== END 2016-11-26 17:35 | disposition home or self-care (01) ==
LOC: JER 16:00 → J4S 22:02
PROVIDERS: ADMIT Internal Medicine; ATTEND Nurse Practitioner Acute Care
DX: R55 Syncope and collapse (principal); K21.9 Gastro-esophageal reflux disease without esophagitis; Z87.440 Personal history of urinary (tract) infections; Z90.89 Acquired absence of other organs; R07.81 Pleurodynia
CPT/HCPCS: 36415; 70450-TC; 71010-TC; 71111-TC; 80053; 81003; 81015; 82553; 83735; 84484; 84703; 85025; 87086; 93005; 93010; 93306-TC; 99282-25; G0378

== ENCOUNTER 2020-11-04 09:09 | Emergency (ER) | payer OTHER ==
[2020-11-04 09:14] VITALS: BP 93/66; PULSE 69; TEMP 97.9; BMI 25.2
[2020-11-04] MEDS ORDERED: KETOROLAC TROMETHAMINE 30 MG/1 ML VIAL IM ONE (09:47)
[2020-11-04] MEDS ORDERED: LIDOCAINE 5% TOPICAL PATCH TP ONE (09:47)
[2020-11-04] MEDS ORDERED: KETOROLAC TROMETHAMINE 30 MG/1 ML VIAL ONE (10:12)
[2020-11-04] MEDS ORDERED: LIDOCAINE 5% TOPICAL PATCH ONE (10:12)
[2020-11-04 10:51] LABS: EPI CELLS 5 /uL (0-25.1); HYALINE CASTS 1 /uL (0-3.1); URINE APPEARANCE CLEAR; URINE BACTERIA 3 /uL (0-1359); URINE BILIRUBIN NEGATIVE (NEGATIVE); URINE COLOR YELLOW; URINE GLUCOSE (UA) NEGATIVE (NEGATIVE); URINE KETONE TRACE (NEGATIVE); URINE LEUK ESTERASE NEGATIVE (NEGATIVE); URINE NITRITE NEGATIVE (NEGATIVE); URINE PROTEIN TRACE (NEGATIVE); URINE RBC 10 /uL (0-23.9); URINE UROBILINOGEN 0.2 mg/dL (0.2-1.0); URINE WBC 2 /uL (0-25.8)
[2020-11-04] MEDS ORDERED: LIDOCAINE PATCH REMOVAL MC SCH (22:00)
== END 2020-11-04 12:00 | disposition home or self-care (01) ==
LOC: JER 09:09
PROC: 3E0233Z Introduction of Anti-inflammatory into Muscle, Percutaneous Approach (ICD-10-PCS; principal; 2020-11-04)
DX: M54.5 Low back pain (principal)
CPT/HCPCS: 81003; 87086; 99284-25

== ENCOUNTER 2022-04-07 09:45 | Emergency (ER) | payer OTHER ==
[2022-04-07 09:51] VITALS: BP 100/55; PULSE 72; RESP 18; TEMP 98.3; BMI 22.3
[2022-04-07] MEDS ORDERED: KETOROLAC TROMETHAMINE 30 MG/1 ML VIAL IM ONE (10:40)
[2022-04-07] MEDS ORDERED: ALBUTEROL SO4 2.5/IPRATROPIUM 0.5 INH SOL 3 ML VIAL.NEB. NEB ONE ×2 (10:40→10:59)
[2022-04-07] MEDS ORDERED: KETOROLAC TROMETHAMINE 30 MG/1 ML VIAL ONE (10:59)
== END 2022-04-07 12:23 | disposition home or self-care (01) ==
LOC: JER 09:45
PROC: 3E0F7GC Introduction of Other Therapeutic Substance into Respiratory Tract, Via Natural or Artificial Opening (ICD-10-PCS; principal; 2022-04-07)
PROC: 3E0233Z Introduction of Anti-inflammatory into Muscle, Percutaneous Approach (ICD-10-PCS; 2022-04-07)
DX: T78.40XA Allergy, unspecified, initial encounter (principal)
CPT/HCPCS: 0241U-QW; 71046-TC-FY; 87070; 87651; 99284-25